=== PATIENT | female | born 1955 | race American Indian/Alaskan Native ===

== ENCOUNTER 2018-01-14 07:06 | Day surgery (SDC) | payer MEDICAID ==
[~2018-01-14 07:06] MED LIST: ADRENALIN IV ONE; MARCAINE 0.5% INFILTRATI ONE; XYLOCAINE 1% 20 mL INFILTRATI ONE
--- NOTE | 2018-01-14 07:53 | Anesthesia Consultation ---
Anesthesia Consult and Med Hx Date of service: 01/14/18 - Airway Anesthetic Teeth Evaluation: Edentulous ROM Head & Neck: Adequate Mental/Hyoid Distance: Adequate Mallampati Class: Class II Intubation Access Assessment: Probably Good - Pre-Operative Health Status ASA Pre-Surgery Classification: ASA3 Proposed Anesthetic Plan: MAC - Cardiovascular System Hx Hypertension: Yes Hx Coronary Artery Disease: No (high cholesterol) - Central Nervous System Hx Back Pain: Yes - Endocrine Hx Non-Insulin Dependent Diabetes: Yes - Other Systems Hx Cancer: Yes (left breast CA (2007), current liver CA) - Additional Comments Anesthesia Medical History Comments: Right Infusaport in situ
--- NOTE | 2018-01-14 07:57 | Anesthesia Day of Surgery ---
Anesthesia Day of Surgery - Day of Surgery Patient Examined: Yes Patient H&P Reviewed: Yes Patient is NPO: Yes
[2018-01-14] MEDS ORDERED: NACL BACTERIOSTATIC INFILTRATI ONE (08:06)
[2018-01-14] MEDS ORDERED: XYLOCAINE 1% 20 mL ONE (08:15)
[2018-01-14] MEDS ORDERED: MARCAINE 0.5% 30 ML INFILTRATI ONE (08:15)
[2018-01-14] MEDS ORDERED: ADRENALIN ONE (08:16)
[2018-01-14] MEDS ORDERED: VERSED ONE (08:18)
[2018-01-14] MEDS ORDERED: DIPRIVAN 10 MG/ML IV ONE (08:19)
[2018-01-14] MEDS ORDERED: ANCEF/STERILE WATER 2 GM/20 ML IV NR (08:28)
[2018-01-14] MEDS ORDERED: VERSED IV NR (09:00)
[2018-01-14] MEDS ORDERED: NACL 0.9% 1000 ML 1,000 ML IV SCH (09:00)
[2018-01-14] MEDS ORDERED: PEPCID IV NR (09:00)
[2018-01-14] MEDS ORDERED: VERSED IV ONE (09:12)
--- NOTE | 2018-01-14 10:47 | Anesthesia Day of Surgery ---
Anesthesia Day of Surgery - Day of Surgery Patient H&P Reviewed: Yes Patient is NPO: Yes Beta Blockers: Yes Cardiac Clearance: Yes Pulmonary Clearance: Yes
--- NOTE | 2018-01-14 10:48 | Post Anesthesia Evaluation ---
- Post Anesthesia Evaluation Patient Participated: Yes Airway Patent: Yes Stable Respiratory Function: Yes Nausea/Vomiting: No Temp > 96.8F: No Pain Manageable: Yes Adequeate Hydration: Yes Anesthesia Complications: No
--- NOTE | 2018-01-14 12:56 | Operative Report ---
SERVICE: Plastic Surgery PREOPERATIVE DIAGNOSES: 1. History of left breast cancer. 2. Status post placement of Port-A-Cath. POSTOPERATIVE DIAGNOSES: 1. History of left breast cancer. 2. Status post placement of Port-A-Cath. PROCEDURE: 1. Removal of Port-A-Cath. 2. Complex closure of chest, 4 cm. SURGEON: Benton Hargrove MD DESCRIPTION OF PROCEDURE: The patient was brought to the operating room and placed on the table in supine position. Following administration of IV sedation and local anesthesia, the right breast was prepped with Betadine solution, draped in usual sterile manner. A #10 blade scalpel was used to circumferentially excise the previous scar for Port-A-Cath placement followed by circumferential dissection of the Port-A-Cath with the surrounding capsule, which was excised and sent to pathology as specimen. Hemostasis was controlled using electrocautery. Closure was performed in layers using interrupted and running 2-0 Monocryl subcuticular suture. Mastisol, Steri-Strips, and sterile dressings were applied. The patient tolerated the procedure well and returned to recovery room in stable condition. JOB# [id number] FTW/[id number]
[2018-01-14 13:55] VITALS: BP 126/78
== END 2018-01-14 11:45 | disposition home or self-care (01) ==
LOC: OR 07:06
PROVIDERS: ATTEND Plastic Surgery
DX: Z45.2 Encounter for adjustment and management of vascular access device (principal); C78.7 Secondary malignant neoplasm of liver and intrahepatic bile duct; I10 Essential (primary) hypertension; E11.9 Type 2 diabetes mellitus without complications; E78.00 Pure hypercholesterolemia, unspecified; Z85.3 Personal history of malignant neoplasm of breast
CPT/HCPCS: 36415; 36589; 82962; 84132; 88300; J0171; J0690; J2250; J2704; J7030; 88302